=== PATIENT | female | born 1970 | race Caucasian/White ===

== ENCOUNTER 2017-11-25 17:53 | Emergency (ER) | payer BC ==
--- NOTE | 2017-11-25 18:04 | ED ---
Fall HPI - General Stated Complaint: Arm Pain Time Seen by Provider: 11/25/17 17:53 Source: patient, EMS - History of Present Illness Initial Comments: This is a 47-year-old female who was riding a horse's prior to admission when she apparently fell off landing on Saturday on her left arm. She complains of mid left humerus area pain no head neck or back pain and is slight amount of pain to the low back area. 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 No other medical problems she was given pain medication by paramedics in route she states she feels improved with respect to pain She holds her arm. MD Complaint: fall - Related Data Home Medications Medication Instructions Recorded Confirmed Cyanocobalamin (Vitamin B-12) 1,000 mcg PO DAILY 11/25/17 11/25/17 [Vitamin B-12] Magnesium 200 mg PO DAILY 11/25/17 11/25/17 Multivitamins, Thera [Multivitamin 1 tab PO DAILY 11/25/17 11/25/17 (formulary)] Niacin 250 mg PO DAILY 11/25/17 11/25/17 Eleva-3 Fatty Acids [Eleva-3] 1,000 mg PO DAILY 11/25/17 11/25/17 Red Yeast Rice 600 mg PO DAILY 11/25/17 11/25/17 Thyroid, Pork [[place] Thyroid] 30 mg PO DAILY 11/25/17 11/25/17 Turmeric Root Extract [Turmeric] 500 mg PO DAILY 11/25/17 11/25/17 Previous Rx's Medication Instructions Recorded Hydrocodone/Acetaminophen [[place] 1 each PO Q6HR PRN #12 tab 11/25/17 5-325] LORazepam [Ativan] 1 mg PO TID #9 tab 11/25/17 Allergies Allergy/AdvReac Type Severity Reaction Status Date / Time latex AdvReac Rash/Hives Verified 11/25/17 18:19 Review of Systems ROS Statement: Those systems with pertinent positive or pertinent negative responses have been documented in the HPI. ROS Other: All systems not noted in ROS Statement are negative. General Exam - General Exam Comments Initial Comments: This is a well-developed well-nourished awake alert oriented 3 female she demonstrates a [place] Coma Scale of 15 General appearance: alert, anxious Head exam: Present: atraumatic, normocephalic, normal inspection Eye exam: Present: normal appearance, PERRL, EOMI. Absent: scleral icterus, conjunctival injection, periorbital swelling ENT exam: Present: normal exam, mucous membranes moist Neck exam: Present: normal inspection. Absent: tenderness, meningismus, lymphadenopathy Respiratory exam: Present: normal lung sounds bilaterally. Absent: respiratory distress, wheezes, rales, rhonchi, stridor Cardiovascular Exam: Present: regular rate, normal rhythm, normal heart sounds. Absent: systolic murmur, diastolic murmur, rubs, gallop, clicks GI/Abdominal exam: Present: soft, normal bowel sounds. Absent: distended, tenderness, guarding, rebound, rigid Extremities exam: Present: tenderness, normal capillary refill, other ( Tenderness palpation of the midshaft of the humerus no before meals tenderness no clavicular tenderness no tenderness distal to the elbow on the left. No sensory motor or vascular deficits. No open wounds noted). Absent: full ROM, pedal edema, joint swelling, calf tenderness Back exam: Present: normal inspection Neurological exam: Present: alert, oriented X3, CN II-XII intact Psychiatric exam: Present: normal affect, normal mood Skin exam: Present: warm, dry, intact, normal color. Absent: rash Course Vital Signs 11/25/17 18:10 Temperature 98.3 F Procedures - Orthopedic Splinting/Casting Injury #1 Side: left Upper Extremity Immobilizer: sling/shoulder immobilizer, sugar tong splint ( Sugar tong applied to the left humerus from the elbow proximal. Is a 5 x 30 splint. He was a prescription in place. There was good neurovascular exam afterwards. The patient did remove her wedding ring that should be noted.) Medical Decision Making - Medical Decision Making I received did discuss case with Dr. Bustillos. Patient was be referred to [facility] however they are from [facility] and will follow-up with their son's orthopedic surgeon with now ready planned appointment tomorrow. This is in [facility]. Be discharged on appropriate medication for pain with a shoulder mobilizer and the splint. - Radiology Data Radiology results: report reviewed (I did review the imaging and reports are is a transverse fracture to the midshaft of the left humerus), image reviewed Disposition Clinical Impression: Closed left humeral fracture, Fall Disposition: HOME SELF-CARE Condition: Good Instructions: Arm Fracture in Adults (ED) Prescriptions: Hydrocodone/Acetaminophen [[place] 5-325] 1 each PO Q6HR PRN #12 tab PRN Reason: Pain LORazepam [Ativan] 1 mg PO TID #9 tab Is patient prescribed a controlled substance at d/c from ED?: Yes When asked, does pt state using other controlled substances?: No If prescribed controlled substance>3 days was MAPS reviewed?: Prescribed <3 Days If opioid is for acute pain is fill amount 7 days or less?: Yes If Rx opioid, was Start Talking consent form obtained?: Yes Referrals: Jesus Campuzano MD [Primary Care Provider] - 1-2 days Luis Enrique Bustillos MD [STAFF PHYSICIAN] - 1-2 days
[2017-11-25] MEDS ORDERED: HYDROmorphone 0.5 MG/0.5 ML SYRINGE IVP STA (18:16)
--- NOTE | 2017-11-25 19:04 | XR ---
EXAMINATION TYPE: XR humerus LT DATE OF EXAM: 11/25/2017 COMPARISON: NONE HISTORY: Pain TECHNIQUE: 3 views FINDINGS: There is midshaft fracture of the left humerus with 50% offset. There is slight anterior an gulation at the fracture site. Glenohumeral joint is anatomic. IMPRESSION: Acute fracture mid shaft of the left humerus.
[2017-11-25] MEDS ORDERED: ONDANSETRON 4 MG/2 ML VIAL IVP STA (19:49)
[2017-11-25] MEDS ORDERED: HYDROmorphone 1 MG/ML 1 ML SYRINGE IVP STA (20:27)
[2017-11-25] MEDS ORDERED: LORazepam 2 MG/ML INJ IV STA (20:27)
[2017-11-25 21:36] VITALS: BP 103/56; PULSE 88; RESP 18; TEMP 98.6
== END 2017-11-25 21:36 | disposition home or self-care (01) ==
LOC: EC 17:53
DX: S42.362A Displaced segmental fracture of shaft of humerus, left arm, initial encounter for closed fracture (principal); M54.5 Low back pain; R40.2412 Glasgow coma scale score 13-15, at arrival to emergency department; Z79.899 Other long term (current) drug therapy; Z91.040 Latex allergy status; V80.010A Animal-rider injured by fall from or being thrown from horse in noncollision accident, initial encounter; Y93.52 Activity, horseback riding; Y92.89 Other specified places as the place of occurrence of the external cause
CPT/HCPCS: 73060; 99284; 29105; 96374; 96375 ×2; 96376; J2060; J2405; J1170 ×2